=== PATIENT | female | born 1965 | race Caucasian/White ===

== ENCOUNTER → 2024-01-24 06:36 | Day surgery (SDC) | payer OTHER, SELFPAY | LOC: GI 06:36 | PROVIDERS: ATTENDING PHYSICIAN Internal Medicine; FAMILY PHYSICIAN Family Medicine | DX: Z12.11 Encounter for screening for malignant neoplasm of colon (principal); K64.8 Other hemorrhoids; K57.30 Diverticulosis of large intestine without perforation or abscess without bleeding; Z80.0 Family history of malignant neoplasm of digestive organs | CPT/HCPCS: G0105 ==

== ENCOUNTER → 2024-05-18 15:02 | Outpatient (REF) | payer OTHER, SELFPAY | LOC: WDC 15:02 | PROVIDERS: ATTENDING PHYSICIAN Family Medicine | DX: Z12.31 Encounter for screening mammogram for malignant neoplasm of breast (principal) | CPT/HCPCS: 77063; 77067 ==

== ENCOUNTER → 2025-06-19 16:11 | Outpatient (REF) | payer OTHER, SELFPAY | LOC: WDC 16:11 | PROVIDERS: ATTENDING PHYSICIAN Family Medicine | DX: Z12.31 Encounter for screening mammogram for malignant neoplasm of breast (principal) | CPT/HCPCS: 77063; 77067 ==